=== PATIENT | female | born 1980 | race Caucasian/White ===

== ENCOUNTER 2017-07-28 07:05 | Emergency (ER) | payer BC ==
--- NOTE | 2017-07-28 07:11 | UC ---
Abdominal Pain Female HPI - HPI Summary HPI Summary: 37 YEAR OLD FEMALE PRESENTS WITH COMPLAINS OF SEVERE ABDOMINAL PAIN SECONDARY TO LIFTING. I AM CONCERNED ABOUT A VENTRAL HERNIA. - History of Current Complaint Stated Complaint: ABD PAIN Time Seen by Provider: 07/28/17 07:11 Hx Obtained From: Patient Onset/Duration: Sudden Onset Severity Initially: Moderate Severity Currently: Moderate Pain Scale Used: 0-10 Numeric - 5 Character: Aching Aggravating Factor(s): Nothing Alleviating Factor(s): Nothing Allergies/Adverse Reactions: Allergies Allergy/AdvReac Type Severity Reaction Status Date / Time No Known Allergies Allergy Verified 07/28/17 07:12 Home Medications: Home Medications Ibuprofen TAB* [Motrin TAB* 800 MG] 800 mg PO Q8H PRN 07/28/17 [History Confirmed 07/28/17] PMH/Surg Hx/FS Hx/Imm Hx Previously Healthy: Yes - Family History Known Family History: Positive: None Review of Systems Constitutional: Negative Skin: Negative Eyes: Negative ENT: Negative Respiratory: Negative Cardiovascular: Negative Gastrointestinal: Abdominal Pain Genitourinary: Negative Motor: Negative Neurovascular: Negative Musculoskeletal: Negative Neurological: Negative Psychological: Negative All Other Systems Reviewed And Are Negative: Yes Physical Exam Triage Information Reviewed: Yes Eye Exam: Normal ENT Exam: Normal Dental Exam: Normal Neck exam: Normal Neck: Positive: 1 Respiratory Exam: Normal Cardiovascular Exam: Normal Abdomen Description: Positive: Distended - SUPRAPUBIC PAIN, Guarding, Other: Musculoskeletal Exam: Normal Neurological Exam: Normal Psychological Exam: Normal Skin Exam: Normal Abd Pain Female Course/Dx - Differential Dx/Diagnosis Provider Diagnoses: abdominal pain Discharge - Discharge Plan Condition: Stable Disposition: HOME Patient Education Materials: Abdominal Pain (ED) Referrals: Blaine Shields [Primary Care Provider] - Additional Instructions: PATIENT STRONGLY SUGGEST TO GO TO THE ER TO RULE OUT VENTRAL HERNIA.
[2017-07-28 07:17] VITALS: BP 124/77
== END 2017-07-28 07:33 | disposition home or self-care (01) ==
LOC: UCCORT 07:05
DX: R10.9 Unspecified abdominal pain (principal)
CPT/HCPCS: 99202; G0463

== ENCOUNTER 2019-12-30 07:29 | Emergency (ER) | payer BC, OTHER ==
[2019-12-30 08:22] LABS: Influenza A Molecular Negative (Negative); Influenza B Molecular Negative (Negative)
[2019-12-30] MEDS ORDERED: Albuterol 2.5 MG/3 ML NEB.SOL* (0.083%) INH ONE (08:58)
--- NOTE | 2019-12-30 08:58 | UC ---
FLU HPI - HPI Summary HPI Summary: 39-year-old woman comes in with a chief complaint of influenza-like symptoms. She is headache and scratchy throat dry cough body aches and feels pressure in her chest. Patient does not have a history of asthma although she has used an albuterol inhaler in the past when she's been ill. Nonsteroidal anti- inflammatories make her stomach hurt so she has not taken any of those. She has not taken any other medications. - History of Current Complaint Chief Complaint: UCRespiratory Stated Complaint: COUGH,CONGESTION,FEVER,BODY ACHES Time Seen by Provider: 12/30/19 08:40 Pain Intensity: 8 - Allergy/Home Medications Allergies/Adverse Reactions: Allergies Allergy/AdvReac Type Severity Reaction Status Date / Time naproxen [From Aleve] Allergy Swelling Verified 12/30/19 07:57 Of Face,Lips,& Throat PMH/Surg Hx/FS Hx/Imm Hx Previously Healthy: Yes - Surgical History Surgical History: Yes Surgery Procedure, Year, and Place: Partial Hysterectomy (still has ovaries), 2014, [facility]; Cholecystectomy, 2011, [facility] - Family History Known Family History: Positive: None - Social History Alcohol Use: Occasionally Substance Use Type: None Smoking Status (MU): Light Every Day Tobacco Smoker Type: Cigarettes Amount Used/How Often: 1/3 PPD Length of Time of Smoking/Using Tobacco: Since Age 16 Household Exposure Type: Cigarettes - Immunization History Most Recent Influenza Vaccination: Not the 2016/2017 Season Review of Systems All Other Systems Reviewed And Are Negative: Yes Constitutional: Positive: Other - SEE HPI Skin: Positive: Negative Eyes: Positive: Negative ENT: Positive: Sore Throat, Nasal Discharge Respiratory: Positive: Shortness Of Breath, Cough, Other - SEE HPI Cardiovascular: Positive: Other - SEE HPI Gastrointestinal: Positive: Negative Motor: Positive: Negative Neurovascular: Positive: Negative Musculoskeletal: Positive: Myalgia Neurological: Positive: Headache Psychological: Positive: Negative Is Patient Immunocompromised?: No Physical Exam Triage Information Reviewed: Yes Appearance: No Pain Distress, Well-Nourished, Ill-Appearing - MILD Vital Signs: Initial Vital Signs Temp 98.9 F 12/30/19 07:57 Pulse 99 12/30/19 07:57 Resp 16 12/30/19 07:57 BP 126/84 12/30/19 07:57 Pulse Ox 100 12/30/19 07:57 Vital Signs Reviewed: Yes Eye Exam: Normal Eyes: Positive: Conjunctiva Clear ENT: Positive: Pharynx normal, Nasal congestion - Patient reports nasal congestion started when she started wearing the respiratory mask in clinic., TMs normal Neck: Positive: Supple Respiratory: Positive: Lungs clear, Normal breath sounds, No respiratory distress Cardiovascular: Positive: RRR Musculoskeletal: Positive: Strength Intact, ROM Intact Neurological: Positive: Alert, Muscle Tone Normal Psychological: Positive: Age Appropriate Behavior Skin Exam: Normal Flu Course/Dx - Course Course Of Treatment: Fire Services Plumber: Veronica Huertas S, ([id number]) Optimization Specialist: LANDON, (NUANCE) Report Date: 12/30/2019 09:33:00 Report Status: Final Start of Report Content Patient Name: DEAN PRADHAN Medical Record#: [id number] Ordering Physician: Silvano Acosta MD Acct.#: [id number] : Age: 39 Sex: F [facility] Exam Date: 12/30/19853 ADM Status: REG ER Order Information: CHEST PA LAT 2 VWS Accession Number: [id number] CPT: 04332 Indication: Cough, congestion. 2 views of the chest demonstrates no mediastinal shift. Heart is of normal size and configuration. Mild pectus deformity is noted. IMPRESSION: No active cardiopulmonary disease is noted. < Electronically signed by Veronica Huertas MD in OV> 12/30/19928 Dictated By: Veronica Huertas MD Dictated Date/Time: 12/30/19904 Transcribed Date/Time: 12/30/19904 Copy to: CC:Conchita Witt FORKLIFT TECHNICIAN; Silvano Acosta MD Imaging - [facility] Imaging - [facility] Imaging - [facility] [id number] [place] [id number] ph [phone]) ph ([phone]) ph ([phone]) End of Report Content Patient had a nebulizer in clinic which did improve her breathing. Influenza is negative. Patient feels ill and is most consistent with bronchitis with bronchospasm. She has no calf pain or other symptoms of pulmonary embolus. I discussed the x-ray report with the patient. DISCUSSED VIRAL VERSES BACTERIAL INFECTIONS AND THE ROLE OF ANTIBIOTICS. THE PATIENT PREFERS TO BE ON ANTIBIOTICS AT THIS TIME. - Differential Dx/Diagnosis Provider Diagnosis: Bronchitis with bronchospasm Discharge ED - Sign-Out/Discharge Documenting (check all that apply): Patient Departure All imaging exams completed and their final reports reviewed: Yes - Discharge Plan Condition: Stable Disposition: HOME Prescriptions: Albuterol HFA INHALER* [Ventolin HFA Inhaler*] 2 puff INH Q4H PRN #1 mdi PRN Reason: Wheezing Azithromyxin SCOT (NF) [Z-Scot (Zithromax) 250 mg tabs #6] 2 tab PO .TODAY, THEN 1 DAILY #6 tab Fluconazole 150 MG TAB* [Diflucan 150 MG TAB*] 150 mg PO ONCE #2 tablet Patient Education Materials: Acute Bronchitis (ED), Bronchospasm (ED) Referrals: Aguilar Witt NP [Primary Care Provider] - Additional Instructions: FOLLOW UP WITH YOUR DOCTOR IF NOT COMPLETELY IMPROVED. GET REEVALUATED SOONER IF NOT IMPROVING OR WORSE OR ANY QUESTIONS OR CONCERNS. - Billing Disposition and Condition Condition: STABLE Disposition: Home
[2019-12-30] MEDS ORDERED: Acetaminophen TAB* 325 MG PO ONE (09:13)
[2019-12-30 10:15] VITALS: BP 111/71
== END 2019-12-30 10:04 | disposition home or self-care (01) ==
LOC: UCCORT 07:29
DX: J40 Bronchitis, not specified as acute or chronic (principal); J98.01 Acute bronchospasm; R51 Headache; F17.210 Nicotine dependence, cigarettes, uncomplicated; Z88.6 Allergy status to analgesic agent
CPT/HCPCS: 71046; 99212; A9270-GY; G0463